=== PATIENT | female | born 1965 | race Hispanic/Latino ===

== ENCOUNTER 2023-06-30 00:24 | Emergency (ER) | payer OTHER ==
[~2023-06-30] VITALS: Ht 152.4 cm; Wt 100.8 kg
[~2023-06-30 00:24] MED LIST: ESOM40CA PO; PRAV40TA3 PO
[2023-06-30 00:56] LABS: BASOPHILS # (AUTO) 0.05 K/uL (0.00-0.20); BASOPHILS % (AUTO) 0.5 % (0.0-5.0); EOSINOPHILS # (AUTO) 0.13 K/uL (0.00-0.70); EOSINOPHILS % (AUTO) 1.4 % (0.0-8.0); HEMATOCRIT 38.7 % (36-48); IMMATURE GRANULOCYTE ABSOLUTE 0.04 K/uL (0-1); LYMPHOCYTES # (AUTO) 1.5 K/uL (1.0-4.8); LYMPHOCYTES % (AUTO) 15.9 % (21.0-51.0); MEAN CORPUSCULAR HEMOGLOBIN 25.8 pg (27.0-33.0); MEAN CORPUSCULAR HGB CONC 31.5 g/dL (32.0-36.0); MEAN CORPUSCULAR VOLUME 81.8 fL (79-99); MONOCYTES # (AUTO) 0.6 K/uL (0.1-1.0); NEUTROPHILS % (AUTO) 75.8 % (40.0-77.0); PLATELET COUNT (AUTO) 267 K/uL (130-400); RED BLOOD CELL COUNT(AUTO) 4.73 MIL/uL (4.00-5.50); RED CELL DISTRIBUTION WIDTH 13.4 % (11.0-15.5); WHITE BLOOD COUNT (AUTO) 9.2 K/uL (4.8-10.8)
[2023-06-30 01:03] LABS: CREATININE 0.9 mg/dL (0.5-1.5)
[2023-06-30 01:15] LABS: ALBUMIN 3.8 g/dL (3.5-5.0); BILIRUBIN,TOTAL 0.2 mg/dL (0.2-1.0)
[2023-06-30] MEDS ORDERED: HYDRALAZINE HCL 10 MG TABLET PO SCH (01:30)
[2023-06-30] MEDS ORDERED: MECLIZINE HCL 25 MG TABLET PO ONE (01:30)
[2023-06-30 02:31] VITALS: BP 132/78; PULSE 76; RESP 16; O2SAT 100
[2023-06-30] MEDS ORDERED: HYDR-3420 PO (02:34)
[2023-06-30] MEDS ORDERED: MECL-302 PO (02:34)
== END 2023-06-30 02:48 | disposition home or self-care (01) ==
LOC: EDH 00:24
DX: H81.10 Benign paroxysmal vertigo, unspecified ear (principal); I10 Essential (primary) hypertension; I16.0 Hypertensive urgency; E11.9 Type 2 diabetes mellitus without complications; Z79.899 Other long term (current) drug therapy; Z90.49 Acquired absence of other specified parts of digestive tract
CPT/HCPCS: 36415; 71045; 80053; 82550; 84484; 85025; 93005

== ENCOUNTER 2025-03-19 18:16 | Emergency (ER) | payer OTHER ==
[~2025-03-19] VITALS: Ht 152.4 cm; Wt 86.2 kg
[~2025-03-19 18:16] MED LIST changes: -ESOM40CA PO; +HYDR-3420 PO; +LISI20TA24 PO; +METO25 PO; -PRAV40TA3 PO
[2025-03-19 19:09] VITALS: TEMP 98.2
--- NOTE | 2025-03-19 20:15 | NUR ---
R UPPER ARM MIDLINE DRESSING CHANGED AT THIS TIME.
--- NOTE | 2025-03-19 20:33 | ERN ---
ED Note History of Present Illness Stated Complaint: LEAKING PICC LINE Chief Complaint: Other Problems Time Seen by MD: 18:21 Time Seen by Midlevel: 18:21 Dictation: The patient is a 59-year-old female with a history of diabetes, hypertension who presents to the emergency department with complaints of malfunction right arm venous access. Patient reports that her infusion started leaking today. Patient was recently admitted on March 08 for cholecystitis and pyelonephritis. Patient was supposed to continue IV antibiotics as outpatient for the urinary tract infection. No other complaints reported. Allergies: Coded Allergies: No Known Allergies (Unverified Allergy, Unknown, 06/30/23) Home Meds Active Scripts Metoprolol Tartrate (Lopressor) 25 Mg Tab, 25 MG PO BID, #60 TAB Prov:SELVIN ROSSI APRN 03/15/25 Hydralazine Hcl (APRESOLINE) 10 Mg Tablet, 10 MG PO QID, #120 TAB 2 Refills Prov:BAY MATTHEWS Sr., MD 06/30/23 Reported Medications Lisinopril (Lisinopril) 20 Mg Tablet, 1 TAB PO DAILY for 30 Days, #30 TAB 0 Refills 03/08/25 Past Medical History Past Medical History: Diabetes-Type II, Hypertension Surgical History: Hysterectomy, Other Surgical History Other: HERNIA History: Not Applicable RN Note Reviewed/Agreed w/PFSH: Yes Review of System Dictation Constitutional: Negative for fever,chills, and weight loss Eyes: Negative for injury, pain,redness, and discharge ENT: Negative for injury,pain or swelling Cardiovascular: Negative for chest pain, palpitations, and edema positive for right venous access malfunction Respiratory: Negative for shortness of breath, cough, and wheezing, Abdomen/GI: Negative for abdominal pain, nausea, vomiting, diarrhea, and constipation Back: Negative for injury and pain : Negative for injury, bleeding and discharge MS/Extremity: Negative for injury and deformity Skin: Negative for rash, and discoloration Neuro: Negative for headache, weakness, numbness, tingling, and seizure Psych: Negative for suicide ideation, homicidal ideation, and hallucinations Initial Vital Sign VS Vital Signs Date Time Temp Pulse Resp B/P (MAP) Pulse Ox O2 Delivery O2 Flow Rate FiO2 03/19/25 18:18 98.2 89 18 125/57 99 Room Air 03/19/25 19:09 0 21 Physical Exam Dictation Vital Signs reviewed General Appearance: Alert, oriented x 3, no acute distress, well developed, nourished. Head and Face: non-traumatic. Eyes: PERRL, pink conjunctivas, eyelid no trauma, anterior chamber with arcus senilis. Ears: Pinnas intact and no signs of trauma or erythema ear canals clear and no discharge TM no erythema Nose: No discharge, no bleeding. Oropharynx: Mouth normal, tongue pink. pharynx clear,no erythema, tonsils no exudates, no abscesses noted, mucous membrane moist Neck: Supple, non-tender, no thyromegaly, no masses, no JVD, no bruits Breast:Deferred Chest:No tenderness, no crepitus, no paradoxical movement, no retractions Lungs:Clear, well-ventilated, symmetric, no rales, no wheezing, no rhonchi, no stridor, good breath sounds bilaterally Heart: Regular rate, regular rhythm, no murmur, no gallops Vascular: no peripheral edema, Abdomen: Soft, positive bowel sounds, nondistended, no guarding, nontender, no rebound, no masses no hepatomegaly, no splenomegaly, no Hinton's sign, no hernias. Rectal: Deferred Genital: Deferred Neurological: Normal speech, motor function intact, sensory function intact Musculoskeletal: Neck nontender, full range of motion, back nontender, full range of motion, Extremities: nontender, full range of motion , right venous accident noted, no erythema, leaking Skin: Color pink, dry, no turgor, no rash, no lacerations, no abrasions, no contusions. Lymphatic: Deferred Results (Laboratory/Radiology) Laboratory/Radiology Laboratory Tests Test 03/19/25 20:33 White Blood Count 4.8 K/uL (4.8-10.8) Red Blood Count 3.95 MIL/uL (4.00-5.50) L Hemoglobin 8.7 g/dL (12.0-16.0) L Hematocrit 28.7 % (36-48) L Mean Corpuscular Volume 72.7 fL (79-99) L Mean Corpuscular Hemoglobin 22.0 pg (27.0-33.0) L Mean Corpuscular Hemoglobin Concent 30.3 g/dL (32.0-36.0) L Red Cell Distribution Width 17.4 % (11.0-15.5) H Platelet Count 303 K/uL (130-400) Mean Platelet Volume 8.8 fL (7.5-10.5) Immature Granulocyte % (Auto) 0.8 % (0-1) Neutrophils (%) (Auto) 63.6 % (40.0-77.0) Lymphocytes (%) (Auto) 27.2 % (21.0-51.0) Monocytes (%) (Auto) 6.8 % (3.0-13.0) Eosinophils (%) (Auto) 0.8 % (0.0-8.0) Basophils (%) (Auto) 0.8 % (0.0-5.0) Neutrophils # (Auto) 3.1 K/uL (1.8-7.7) Lymphocytes # (Auto) 1.3 K/uL (1.0-4.8) Monocytes # (Auto) 0.3 K/uL (0.1-1.0) Eosinophils # (Auto) 0.04 K/uL (0.00-0.70) Basophils # (Auto) 0.04 K/uL (0.00-0.20) Absolute Immature Granulocyte (auto 0.04 K/uL (0-1) Nucleated Red Blood Cells 0.0 % (0.0-0.19) Red Blood Cell Morphology See comments Prothrombin Time 11.0 SEC (9.6-11.6) Prothromb Time International Ratio 1.04 (0.85-1.15) Activated Partial Thromboplast Time 30.9 SEC (26.3-35.5) Sodium Level 134 mmol/L (136-145) L Potassium Level 3.4 mmol/L (3.5-5.1) L Chloride Level 100 mmol/L (101-111) L Carbon Dioxide Level 28 mmol/L (21-32) Blood Urea Nitrogen 11 mg/dL (7-18) Creatinine 0.9 mg/dL (0.5-1.0) Glomerular Filtration Rate Calc 73 mL/min (>90) Random Glucose 101 mg/dL (70-105) Total Calcium 8.0 mg/dL (8.5-10.1) L REASON: right arm ORDERING PHYSICIAN: CLYDE LIRA FORMULA WEIGHER PROCEDURE: VENOUS UNI - US VENOUS DOPPLER UNILATERAL EXAMINATION: SPECTRAL DOPPLER ULTRASOUND EXAMINATION OF THE RIGHT UPPER EXTREMITY VEINS. CLINICAL HISTORY: To rule out DVT. COMPARISON: None. TECHNIQUE: Grayscale, color, and spectral Doppler images of the right upper extremity veins are submitted. FINDINGS: The right internal jugular, visualized aspects of the subclavian, axillary, brachial, and cephalic veins are patent. These veins show normal flow with physiological changes of phasicity and augmentation. The right basilic vein is non-compressible, and there is no flow on augmentation. IMPRESSION: Right basilic vein thrombosis. The remaining right upper extremity veins are within normal limits. /[place] REASON: sob ORDERING PHYSICIAN: CLYDE LIRA PROCEDURE: CXR1VW - CHEST 1VW EXAM: CR Chest, 1 View. CLINICAL HISTORY: sob COMPARISON: 06/30/2023 FINDINGS: LUNGS: There is no mass, infiltrate, or acute pulmonary abnormality. PLEURAL SPACES: No pleural effusion or pneumothorax. MEDIASTINUM: Cardiac size and mediastinal contours within normal limits. BONES: No aggressive appearing osseous lesion seen. IMPRESSION: No acute cardiopulmonary pathology is evident. /[place] Labs Reviewed?: Yes ED Course ED Course Orders Procedure Category Date Status Time Us Venous Doppler US 03/19/25 Resulted Unilateral 18:35 Chest 1vw RAD 03/19/25 Resulted 18:37 Cbc With Differential LAB 03/19/25 Complete 20:19 Basic Metabolic Panel LAB 03/19/25 Complete 20:19 Pt And Ptt LAB 03/19/25 Complete 20:19 Place Midline Access CPOE 03/19/25 Transmitted 20:53 Oseltamivir Phosphate PHA 03/19/25 Complete (Tamiflu) 21:30 Current Medications Medications (Trade) Dose Ordered Sig/Lavon Route PRN Reason Start Time Stop Time Status Last Admin Dose Admin Oseltamivir Phosphate (Tamiflu) 75 mg ONCE ONCE PO 03/19/25 21:30 03/19/25 21:26 DC Vital Signs Date Time Temp Pulse Resp B/P (MAP) Pulse Ox O2 Delivery O2 Flow Rate FiO2 03/19/25 21:14 81 16 125/43 99 Room Air* 0 21 03/19/25 19:09 98.2 85 16 98/54 99 Room Air* 0 21 03/19/25 18:18 98.2 89 18 125/57 99 Room Air Medical Decision Making MDM The patient is a 59-year-old female with a history of diabetes, hypertension who presents to the emergency department with complaints of malfunction right arm venous access. Patient reports that her infusion started leaking today. Patient was recently admitted on March 08 for cholecystitis and pyelonephritis. Patient was supposed to continue IV antibiotics as outpatient for the urinary tract infection. No other complaints reported. CBC showed no leukocytosis, microcytic anemia, unchanged from previous visits, chemistry showed mild hypokalemia, mild hyponatremia, venous ultrasound revealed a right basilic vein thrombosis the remaining right upper extremity veins are with a normal limits. We will remove patient's midline and replaced it on her left arm. Patient has no history of DVT. Patient currently asymptomatic no swelling or erythema to right arm, no pain. Patient will need to be follow up as outpatient to ensure that thrombus does not develop into deep vein thrombosis. Patient instructed to return to ER if she develops swelling, pain or edema to her right arm. Patient's agree with discharge planning. Patient is midline was successfully replaced on left arm. Right midline was discontinued. Patient will be discharged to follow up with PCP. Differential diagnosis: Intravenous line malfunction, DVT, obstructed venous access Need for hospitalization: Patient does not meet criteria for hospitalization. There are no social concerns with this patient. DX & DISP Disposition: Discharge Departure Impression: Primary Impression: Encounter for venous access device care Additional Impression: Acute thrombosis of right basilic vein Condition: Stable Additional Instructions: Please continue to follow up with your primary doctor. Continue following up for your antibiotic treatment. You had a clot to your superficial vein on your right arm which you will need to continue monitoring with your primary doctor. If you develop severe swelling, erythema, pain you can return to ER for further evaluation. If anything worsens please return to ER. FOLLOW-UP WITH PRIMARY CARE PROVIDER IN 1 TO 2 DAYS. TAKE MEDICATIONS DIRECTED HERE IN THE EMERGENCY ROOM. OKAY TO CONTINUE HOME MEDICATIONS UNLESS OTHERWISE DISCUSSED DURING YOUR VISIT IN THE EMERGENCY ROOM TODAY. RETURN TO YOUR NEAREST EMERGENCY ROOM IF SYMPTOMS WORSEN OR IF THERE IS NO IMPROVEMENT. CALL 911 IF YOU NEED IMMEDIATE ASSISTANCE. TAKE TYLENOL [id number] NEEDED AND IF NO CONTRAINDICATIONS ARE PRESENT. INCREASE ORAL HYDRATION. A WOUND CULTURE OR URINE CULTURE WAS ORDERED HERE IN THE EMERGENCY ROOM DEPARTMENT PLEASE FOLLOW-UP WITH PRIMARY CARE PROVIDER AND ADVISE THEM TO GET REPEAT PORTS FROM OUR FACILITY. IF YOU HAD ANY DEDRA WRAP/SPLINTS THAT WERE APPLIED HERE, PLEASE DO NOT REMOVE THEM UNTIL YOU SEE YOUR PRIMARY CARE OR SPECIALTY. Referrals: PIYUSH REARDON (PCP) Time of Disposition: 22:38 I have reviewed the case, and I agree with, Diagnosis and Plan CLYDE LIRA Mar 19, 2025 20:33
[2025-03-19 20:40] LABS: IMMATURE GRANULOCYTE ABSOLUTE 0.04 K/uL (0-1); NUCLEATED RED BLOOD CELLS 0.0 % (0.0-0.19); PLATELET COUNT (AUTO) 303 K/uL (130-400); RED BLOOD CELL COUNT(AUTO) 3.95 MIL/uL (4.00-5.50); RED CELL DISTRIBUTION WIDTH 17.4 % (11.0-15.5); WHITE BLOOD COUNT (AUTO) 4.8 K/uL (4.8-10.8)
[2025-03-19 20:48] LABS: CREATININE 0.9 mg/dL (0.5-1.0); GLOMERULAR FILTR. RATE CALC 73.0 mL/min (>90); GLUCOSE,RANDOM 101.0 mg/dL (70-105); SODIUM SERUM 134.0 mmol/L (136-145); UREA NITROGEN, BLOOD 11.0 mg/dL (7-18)
--- NOTE | 2025-03-19 20:55 | HMCIMG ---
EXAMINATION: SPECTRAL DOPPLER ULTRASOUND EXAMINATION OF THE RIGHT UPPER EXTREMITY VEINS. CLINICAL HISTORY: To rule out DVT. COMPARISON: None. TECHNIQUE: Grayscale, color, and spectral Doppler images of the right upper extremity veins are submitted. FINDINGS: The right internal jugular, visualized aspects of the subclavian, axillary, brachial, and cephalic veins are patent. These veins show normal flow with physiological changes of phasicity and augmentation. The right basilic vein is non-compressible, and there is no flow on augmentation. IMPRESSION: Right basilic vein thrombosis. The remaining right upper extremity veins are within normal limits. /[place]
[2025-03-19 20:58] LABS: INR 1.04 (0.85-1.15)
--- NOTE | 2025-03-19 21:12 | HMCIMG ---
EXAM: CR Chest, 1 View. CLINICAL HISTORY: sob COMPARISON: 06/30/2023 FINDINGS: LUNGS: There is no mass, infiltrate, or acute pulmonary abnormality. PLEURAL SPACES: No pleural effusion or pneumothorax. MEDIASTINUM: Cardiac size and mediastinal contours within normal limits. BONES: No aggressive appearing osseous lesion seen. IMPRESSION: No acute cardiopulmonary pathology is evident. /[place]
[2025-03-19] MEDS ORDERED: OSELTAMIVIR PHOSPHATE 75 MG CAP PO ONE (21:30)
--- NOTE | 2025-03-19 22:01 | NUR ---
RGV PICC LINE FORMS ANALYST AT BEDSIDE AT THIS TIME.
--- NOTE | 2025-03-19 22:25 | NUR ---
ABNER MIDLINE PUT IN AT THIS TIME.
[2025-03-19 22:42] VITALS: BP 122/48; PULSE 78; RESP 17; O2SAT 99
== END 2025-03-19 22:47 | disposition home or self-care (01) ==
LOC: EDH 18:16
DX: I82.611 Acute embolism and thrombosis of superficial veins of right upper extremity (principal); E11.9 Type 2 diabetes mellitus without complications; I10 Essential (primary) hypertension; Z45.2 Encounter for adjustment and management of vascular access device; Z79.899 Other long term (current) drug therapy; Z90.710 Acquired absence of both cervix and uterus
CPT/HCPCS: 36410; 36415; 36569; 71045; 80048; 85025; 85610; 85730; 93971; 99285

== ENCOUNTER 2025-03-26 19:28 | Emergency (ER) | payer OTHER ==
[~2025-03-26] VITALS: Ht 154.9 cm; Wt 86.2 kg
--- NOTE | 2025-03-26 21:15 | HMCIMG ---
EXAM: CR Chest, 1 View. CLINICAL HISTORY: CHECK PLACEMENT OF LEFT PICC LINE, LEAKING OF 0 TODAY COMPARISON: Radiograph from March 19, 2025 FINDINGS: Left PICC terminates overlying the expected location of the left axillary vessels. LUNGS: There is no mass, infiltrate, or acute pulmonary abnormality. PLEURAL SPACES: No pleural effusion or pneumothorax. MEDIASTINUM: Cardiac size and mediastinal contours within normal limits. BONES: No acute osseous abnormality. IMPRESSION: 1. Left PICC line terminates overlying the expected location of the left axillary vessels. 2. No acute cardiopulmonary abnormality. /[place]
--- NOTE | 2025-03-26 21:31 | ERN ---
ED Note History of Present Illness Stated Complaint: PICC LINE LEAKING Chief Complaint: Other Problems Time Seen by MD: 19:30 Dictation: This is a 59-year-old female who presented to the emergency room complaining of a leaking left-sided midline access. Patient was admitted to the hospital on 03/15/2025 and had multiple medical problems including acute cholecystitis, cystitis, pyelonephritis and she was eventually sent home on IV antibiotic therapy for 14 days as she had ESBL Enterococcus. She came in last week where she had a PICC line in the right upper extremity which was leaking and workup revealed a right basilic vein thrombosis and the PICC line was removed and a new midline was placed in the left upper extremity. She stated that there is small amount of leakage onto the medial side of elbow. No fever chills or rigors no arm swelling. No discoloration of the fingers no pain, patient stated that she has 3 more days of IV antibiotics left Temperature 98.2 pulse 81 respirations 20 blood pressure 148/83 with a pulse oximetry of 99% on room air Chronic medical problems include diabetes mellitus, hypertension Allergies: Coded Allergies: No Known Allergies (Unverified Allergy, Unknown, 06/30/23) Home Meds Active Scripts Metoprolol Tartrate (Lopressor) 25 Mg Tab, 25 MG PO BID, #60 TAB Prov:SELVIN ROSSI APRN 03/15/25 Hydralazine Hcl (APRESOLINE) 10 Mg Tablet, 10 MG PO QID, #120 TAB 2 Refills Prov:BAY MATTHEWS Sr., MD 06/30/23 Reported Medications Lisinopril (Lisinopril) 20 Mg Tablet, 1 TAB PO DAILY for 30 Days, #30 TAB 0 Refills 03/08/25 Past Medical History Past Medical History: Diabetes-Type II, Hypertension, UTI Surgical History: Hysterectomy, Other Surgical History Other: HERNIA, PICC LINE LEFT UPPER ARM Family History: Negative Social History: Negative History: Not Applicable RN Note Reviewed/Agreed w/PFSH: Yes Review of System Dictation Constitutional: Negative for fever,chills, and weight loss Eyes: Negative for injury, pain,redness, and discharge ENT: Negative for injury,pain or swelling Cardiovascular: Negative for chest pain, palpitations, and edema Respiratory: Negative for shortness of breath, cough, and wheezing, Abdomen/GI: Negative for abdominal pain, nausea, vomiting, diarrhea, and constipation Back: Negative for injury and pain : Negative for injury, bleeding and discharge MS/Extremity: Negative for injury and deformity positive for leaking left upper extremity midline Skin: Negative for rash, and discoloration Neuro: Negative for headache, weakness, numbness, tingling, and seizure Psych: Negative for suicide ideation, homicidal ideation, and hallucinations Initial Vital Sign VS Vital Signs Date Time Temp Pulse Resp B/P (MAP) Pulse Ox O2 Delivery O2 Flow Rate FiO2 03/26/25 19:29 98.2 81 20 148/83 99 Room Air Physical Exam Dictation General: awake, alert, NAD obese female Head/Face: Normocephalic, atraumatic Eyes: PERRL, EOMI, vision at baseline ENT: oral cavity clear, TMs clear, no signs of infection Neck: Trachea midline, supple, no nuchal rigidity Cardiovascular: RRR, normal S1/S2, No MRGs, no JVD Respiratory: CTAB, no respiratory distress, No rales or wheezes Abdomen: Soft, non-tender, non-distended, normal bowel sounds, no guarding or rebound. Skin: Warm, dry, normal turgor, no rash MS/Extremity: Pulses equal, no cyanosis, neurovascular intact, FROM left upper extremity midline in place with dressing. No erythema, no induration no drainage no pus Neuro: COAx4, GCS 15, strength 5/5, CN 2-12 intact, normal cerebellar exam, normal gait, Psych: Normal behavior, mood, and affect normal Extremities-trace edema without any palpable cords, Homans sign is negative ED Course ED Course Orders Procedure Category Date Status Time Chest 1vw RAD 03/26/25 Resulted 19:40 Vital Signs Date Time Temp Pulse Resp B/P (MAP) Pulse Ox O2 Delivery O2 Flow Rate FiO2 03/26/25 19:29 98.2 81 20 148/83 99 Room Air Charge nurse and myself inspected the left upper extremity midline which has 2 ports with 1 port hook to the IV antibiotics in the other port is free. Charge nurse with a aseptic techniques flush the [place] and there was absolutely no resistance leak age for any issues with a midline. Patient had no difficulty in terms of pain discomfort. The IV antibiotics port was disconnected and reconnected to this [place] which was flowing very easily. The other port was cleansed with alcohol swab and a new cap was placed. Patient tolerated the procedure extremely well without any immediate problems Medical Decision Making MDM Differential diagnosis: Blocked midline port, local infection, thrombosis of the veins, dislodgement of the midline. Rationale: Tests considered and ordered secondary to shared decision making include: Previous outside records reviewed: Old ER visits. Risk of complication and/or morbidity or mortality of patient management: None Medications-Per medication reconciliation Need for hospitalization: Patient does not meet criteria for hospitalization. Need for emergency major/minor surgery: No There are no social concerns with this patient. Prescription drug management Prescriptions will include symptomatic care Patient's prior external medical records from other ER visits were reviewed by me as indicated. Prior testing and results from previous visits were reviewed. Prior tests were taken into account with medical decision making and resource utilization, independent historian/historians were used to obtain complete medical history. I independently interpreted the test that were performed, results were reviewed by me and considered findings on radiology if ordered. Medical management and examination interpretation discussions were had by me with other qualified healthcare professionals as indicated for the patient's care. Problem List Problem List: (1) UTI (urinary tract infection) due to Enterococcus (2) Encounter for venous access device care DX & DISP Disposition: Discharge Departure Impression: Primary Impression: Encounter for venous access device care Additional Impression: UTI (urinary tract infection) due to Enterococcus Condition: Stable Additional Instructions: Patient and the caregiver have been informed of all the diagnostic tests and the imaging conducted during the today's visit to the emergency room and has verbalized understanding of the results I have personally reviewed and interpreted all diagnostic exams performed here in the ER today as well as the vital signs documented by the nursing staff. The patient is now being discharged to home and should follow up with the primary care physician or the specialist as directed by the ER staff. Follow-up with primary care provider in 1 to 2 days. Take medications as directed here in the emergency room. Okay to continue home medications unless otherwise discussed during your visit in the emergency room today. Return to your nearest emergency room if symptoms worsen or if there is no improvement. Call 911 if you need immediate assistance. Take Tylenol or Motrin [id number] as needed and if no contraindications are present. Increase oral hydration. A wound culture or urine culture was ordered here in the emergency room department please follow-up with primary care provider and advise them to get repeat ports from our facility. If you had any [facility] wrap/splints that were applied here, please do not remove them until you see your primary care or specialty. Referrals: PIYUSH REARDON (PCP) ROSS SHAH MD Mar 26, 2025 21:31
--- NOTE | 2025-03-26 22:01 | NUR ---
pt midline dressing soiled and pt reports leaking however md and charge nurse confirmed no leaking and dressing change completed as needed
[2025-03-26 22:03] VITALS: BP 145/80; PULSE 80; RESP 16; TEMP 98.1; O2SAT 98
== END 2025-03-26 22:08 | disposition home or self-care (01) ==
LOC: EDH 19:28
DX: T82.534A Leakage of infusion catheter, initial encounter (principal); N39.0 Urinary tract infection, site not specified; B95.2 Enterococcus as the cause of diseases classified elsewhere; E11.9 Type 2 diabetes mellitus without complications; I10 Essential (primary) hypertension; Z79.899 Other long term (current) drug therapy; Z87.440 Personal history of urinary (tract) infections; Z90.710 Acquired absence of both cervix and uterus; Y71.2 Prosthetic and other implants, materials and accessory cardiovascular devices associated with adverse incidents
CPT/HCPCS: 71045; 99283